=== PATIENT | female | born 1985 ===

== ENCOUNTER 2016-10-22 03:26 | Emergency (ER) | payer SELFPAY ==
[2016-10-22 03:42] VITALS: BP 118/67; PULSE 87; RESP 16; TEMP 99; O2SAT 100
[2016-10-22] MEDS ORDERED: Sodium Chloride 0.9% 1,000 ML IV STA (04:21)
--- NOTE | 2016-10-22 04:23 | ED PDOC ---
HPI: Headache Time Seen by Provider: 10/22/16 03:50 Chief Complaint (Nursing): Headache Chief Complaint (Provider): headache History Per: Patient History/Exam Limitations: no limitations Onset/Duration Of Symptoms: Days (3), Waxing/Waning Current Symptoms Are (Timing): Still Present Quality: "Pain" Associated Symptoms: Photophobia, Nausea, Vomiting Additional History Per: Patient Additional Complaint(s): 31 y/o female presents for eval of intermittent generalized headache x 3 days. Associated photophobia, vomiting x 2 last night. Headache improved with motrin. Patient states she has had headaches like this in past, has never followed up with a primary doctor. Denies fever, neck pain/stiffness, extremity numbness/weakness, dizziness, chest pain, shortness of breath, palpitations, abdominal pain. Past Medical History Reviewed: Historical Data, Nursing Documentation, Vital Signs Vital Signs: Last Vital Signs Temp 99 F 10/22/16 03:40 Pulse 87 10/22/16 03:40 Resp 16 10/22/16 03:40 BP 118/67 10/22/16 03:40 Pulse Ox 100 10/22/16 03:40 - Medical History PMH: Gall Bladder Disease - Surgical History Surgical History: (x 1) - Family History Family History: States: Unknown Family Hx - Home Medications Home Medications: Ambulatory Orders Medication Instructions Recorded Tramadol Hydrochloride [Tramadol] 50 mg PO TID PRN #10 tab 02/16/14 Ibuprofen 600 mg PO QID PRN #30 tab 02/18/14 Oxycodone HCl/Acetaminophen 1 tab PO Q6 PRN #18 tab 06/01/14 [Percocet 325 mg-5 mg] Fluconazole [Diflucan] 150 mg PO ONCE #1 tab 06/14/15 Metronidazole [Metrogel] 60 gm VAG HS #1 packet 06/14/15 Tamsulosin HCl [Flomax] 0.4 mg PO DAILY #10 cap.er.24h 10/19/15 Tramadol HCl [Ultram] 50 mg PO Q6 #15 tab 10/19/15 Doxycycline Monohydrate 100 mg PO BID 14 Days 04/15/16 Naproxen [Naprosyn] 500 mg PO Q12 PRN #20 tablet 10/22/16 Ondansetron [Zofran] 4 mg PO Q8H PRN #10 tab 10/22/16 - Allergies Allergies/Adverse Reactions: Allergies Allergy/AdvReac Type Severity Reaction Status Date / Time No Known Allergies Allergy Verified 10/22/16 03:40 Review of Systems ROS Statement: Except As Marked, All Systems Reviewed And Found Negative Gastrointestinal: Positive for: Vomiting Neurological: Positive for: Headache Physical Exam - Reviewed Nursing Documentation Reviewed: Yes Vital Signs Reviewed: Yes - Physical Exam Appears: Positive for: Well, Non-toxic, No Acute Distress Head Exam: Positive for: ATRAUMATIC, NORMAL INSPECTION, NORMOCEPHALIC Skin: Positive for: Normal Color Eye Exam: Positive for: Normal appearance, EOMI, PERRL ENT: Positive for: Normal ENT Inspection Cardiovascular/Chest: Positive for: Regular Rate, Rhythm Respiratory: Positive for: Normal Breath Sounds Gastrointestinal/Abdominal: Positive for: Normal Exam Back: Positive for: Normal Inspection Extremity: Positive for: Normal ROM Neurologic/Psych: Positive for: Alert, Oriented. Negative for: Motor/Sensory Deficits - ECG O2 Sat by Pulse Oximetry: 100 - Progress ED Course And Treament: labs, IV fluids, IV reglan, PO tylenol 5:55 Patient states headache improving. Pending labs Disposition - Clinical Impression Clinical Impression: Headache - Patient ED Disposition Is Patient to be Admitted: No - Disposition Referrals: [facility] [Outside] Disposition: Transfer of Care Disposition Time: 06:00 Condition: IMPROVED Prescriptions: Naproxen [Naprosyn] 500 mg PO Q12 PRN #20 tablet PRN Reason: Pain, Moderate (4-7) Ondansetron [Zofran] 4 mg PO Q8H PRN #10 tab PRN Reason: Nausea/Vomiting Instructions: Acute Headache (ED) Print Language: LUXEMBOURGISH Patient Signed Over To: Juancho Lyle Handoff Comments: pending labs, re-eval
[2016-10-22 05:53] LABS: BASO % 0.3 % (0.0-2.0); HEMATOCRIT 38.5 % (34.0-47.0); LYMPH # 0.9 K/uL (1.0-4.3); LYMPH % 16.8 % (20.0-40.0); MEAN CELL VOLUME 84.6 fl (81.0-99.0); MEAN CORPUSCULAR HEMOGLOBIN 27.6 pg (27.0-31.0); MEAN CORPUSCULAR HGB CONC 32.6 g/dL (33.0-37.0); MEAN PLATELET VOLUME 8.3 fl (7.2-11.7); MONO # 0.4 K/uL (0.0-0.8); MONO % 8.4 % (0.0-10.0); NEUT # 3.9 K/uL (1.8-7.0); NEUT % 74.5 % (50.0-75.0); RED CELL DISTRIBUTION WIDTH 12.8 % (11.5-14.5); WHITE BLOOD COUNT 5.2 K/uL (4.8-10.8)
--- NOTE | 2016-10-22 06:03 | ED PDOC ---
- Laboratory Results Result Diagrams: 10/22/16 04:21 10/22/16 04:21 - ECG O2 Sat by Pulse Oximetry: 100 Medical Decision Making Medical Decision Making: Pt s/o from [facility] at 0600 pending labs and re-eval. Pt. feeling better, will d/c home. Return precautions given. Scribe Attestation: Documented by Nayeli Valadez acting as a scribe for Juancho Lyle MD. Provider Scribe Attestation: All medical record entries made by the Scribe were at my direction and personally dictated by me. I have reviewed the chart and agree that the record accurately reflects my personal performance of the history, physical exam, medical decision making, and the department course for this patient. I have also personally directed, reviewed, and agree with the discharge instructions and disposition. Disposition - Clinical Impression Clinical Impression: Headache - POA Present On Arrival: None - Disposition Referrals: [facility] [Outside] Disposition: Routine/Home Disposition Time: 06:35 Condition: IMPROVED Prescriptions: Naproxen [Naprosyn] 500 mg PO Q12 PRN #20 tablet PRN Reason: Pain, Moderate (4-7) Ondansetron [Zofran] 4 mg PO Q8H PRN #10 tab PRN Reason: Nausea/Vomiting Instructions: Acute Headache (ED) Print Language: ARMENIAN
[2016-10-22 06:18] LABS: ALB/GLOB RATIO 1.2 (1.0-2.1); ALKALINE PHOSPHATASE 84 U/L (38-126); ALT/SGPT 42 U/L (9-52); AST/SGOT 39 U/L (14-36); BILIRUBIN,TOTAL 0.1 mg/dl (0.2-1.3); BLOOD UREA NITROGEN 8 mg/dl (7-17); CALCIUM 9.5 mg/dL (8.4-10.2); CARBON DIOXIDE 24 mmol/L (22-30); CHLORIDE 103 mmol/L (98-107); GFR AFRICAN-AMERICAN > 60; GLUCOSE,RANDOM 104 mg/dL (65-105); POTASSIUM 3.9 MMOL/L (3.6-5.0); SODIUM 139 mmol/l (132-148); TOTAL PROTEIN 8.2 G/DL (6.3-8.2)
== END 2016-10-22 06:34 | disposition home or self-care (01) ==
LOC: H.ER 03:26
DX: R51 Headache (principal); R11.10 Vomiting, unspecified
CPT/HCPCS: 80053; 81025; 85025; 99283; J2765; J7040

== ENCOUNTER 2018-01-19 12:10 | Emergency (ER) | payer SELFPAY ==
--- NOTE | 2018-01-19 13:13 | ED PDOC ---
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 Patient rates pain as 5 out of 10 and reports she is approximately 8 weeks . She states the three prior came full term. Patient denies having care or taking any vitamins, experiencing fever, chills, nausea, vomiting, diarrhea, vaginal bleeding, vaginal discharge or taking any medications prior to arrival. Otherwise: (-) melena, (-) hematochezia. LNMP: November 25, 2017 PMD: none provided Past Medical History Reviewed: Historical Data, Nursing Documentation, Vital Signs Vital Signs: Last Vital Signs Temp 98.0 F 01/19/18 16:24 Pulse 78 01/19/18 16:24 Resp 16 01/19/18 16:24 BP 95/45 L 01/19/18 16:24 Pulse Ox 99 01/19/18 16:24 - Medical History PMH: Gall Bladder Disease - Surgical History Surgical History: (x 2) - Family History Family History: States: Unknown Family Hx - Social History Current smoker - smoking cessation education provided: No Alcohol: None Drugs: Denies - Home Medications Home Medications: Ambulatory Orders Medication Instructions Recorded Tramadol Hydrochloride [Tramadol] 50 mg PO TID PRN #10 tab 02/16/14 Ibuprofen 600 mg PO QID PRN #30 tab 02/18/14 Oxycodone HCl/Acetaminophen 1 tab PO Q6 PRN #18 tab 06/01/14 [Percocet 325 mg-5 mg] Fluconazole [Diflucan] 150 mg PO ONCE #1 tab 06/14/15 Metronidazole [Metrogel] 60 gm VAG HS #1 packet 06/14/15 Tamsulosin HCl [Flomax] 0.4 mg PO DAILY #10 cap.er.24h 10/19/15 Tramadol HCl [Ultram] 50 mg PO Q6 #15 tab 10/19/15 Doxycycline Monohydrate 100 mg PO BID 14 Days tablet 04/15/16 Naproxen [Naprosyn] 500 mg PO Q12 PRN #20 tablet 10/22/16 Ondansetron [Zofran] 4 mg PO Q8H PRN #10 tab 10/22/16 Acetaminophen [Acetaminophen 8 650 mg PO Q8 PRN #21 tablet.er 01/19/18 Hour] 21/Iron Fu/Folic Acid 1 each PO DAILY #30 tablet 01/19/18 [ Complete Caplet] - Allergies Allergies/Adverse Reactions: Allergies Allergy/AdvReac Type Severity Reaction Status Date / Time No Known Allergies Allergy Verified 10/22/16 03:40 Review of Systems ROS Statement: Except As Marked, All Systems Reviewed And Found Negative Constitutional: Negative for: Fever, Chills Gastrointestinal: Positive for: Abdominal Pain (Diffuse). Negative for: Nausea , Vomiting, Diarrhea Genitourinary Female: Negative for: Vaginal Discharge, Vaginal Bleeding Physical Exam - Reviewed Nursing Documentation Reviewed: Yes Vital Signs Reviewed: Yes - Physical Exam Comments: GENERAL APPEARANCE: Patient is awake, alert, oriented x 3, resting comfortably. SKIN: Warm, dry; (-) cyanosis. EYES: (-) conjunctival pallor, (-) scleral icterus. ENMT: Mucous membranes moist. Airway patent, (-) stridor. NECK: Supple, FROM CHEST AND RESPIRATORY: (-) rales, (-) rhonchi, (-) wheezes; breath sounds equal bilaterally. Respirations nonlabored. HEART AND CARDIOVASCULAR: (-) irregularity ABDOMEN AND GI: Soft (-) distention. Bowel sounds active x4; [+] mild diffuse tenderness. (-) guarding, (-) rebound, (-) palpable masses, (-) CVA tenderness. EXTREMITIES: (-) deformity, (-) edema NEURO AND PSYCH: Mental status as above; (-) focal findings. Gait: steady. Speech: clear. (-) facial asymmetry (-) aphasia - Laboratory Results Result Diagrams: 01/19/18 14:13 01/19/18 14:13 Urine POC: Positive Urine dip results: Positive for: Blood (large), Protein (30). Negative for: Leukocyte Esterase, Nitrate, Ketones, Glucose, Bilirubin - ECG O2 Sat by Pulse Oximetry: 97 (RA) Pulse Ox Interpretation: Normal Medical Decision Making Medical Decision Making: Time: 1310 Initial Impression: abdominal pain and preganancy Initial Plan: --CMP --Beta- HCG --Urine --Urine dipstick --CBC --Tylenol 325 mg PO --Urine Culture --Urinalysis --US OB Transvaginal 1310 Udip reviewed (+) blood. U/A and U/C ordered. Upreg: (+) 1440 Patient in U/S. CBC unremarkable. H&H stable. U/A reviewed (-) leukocyte (-) nitrate (+) hematuria 1530 CMP unremarkable. Beta Quant: 18608.00 Pending U/S read. 1600 Date of service: 01/19/2018 PROCEDURE: OB Pelvic Ultrasound HISTORY: abd pain, preg LMP: 11/25/2017 COMPARISON: No relevant prior imaging FINDINGS: UTERUS: Gestational sac: Single intrauterine gestation. Measures 2.8 cm compatible with estimated gestational age of 7 weeks, 5 days. Yolk sac: Measures 0.4 cm. pole: [place]-rump length measures 1.0 cm compatible with estimated gestational age of 7 weeks, 1 day. Heart rate: 146 bpm. age (Ultrasound estimated): 7 weeks, 3 days Mar[place]-gestational hemorrhage: None. Date of delivery (Ultrasound estimated) : 09/04/2018 Uterus measures 8.8 x 6.8 x 5.6 cm. Retroverted. Normal in size and appearance. CERVIX: Measures 4.6 cm. Long and closed. No cervical abnormality seen. RIGHT OVARY: Not visualized. LEFT OVARY: Measures 3.4 x 2.3 x 1.8 cm. No solid mass. Normal flow. FREE FLUID: None. OTHER FINDINGS: None. IMPRESSION: Single live intrauterine gestation with average ultrasound age of 7 weeks, 3 days. heart rate 146 beats per minute. Cervix long and closed. 1615 On re-evaluation, patient reports resolution of symptoms. On exam, patient remains AAOx3, in no acute distress. Lungs clear to auscultation, cardiac RRR, abdomen soft, non-tender, repeat neuro exam shows no focal findings. Vitals stable. Lab/Diagnostic results d/w the patient in great detail using meteorology faculty member #[id number]. Diagnosis of abdominal pain in first trimester of , hematuria d/w the patient. Patient states she has an upcoming OB appt on 01/29/18 and was advised to follow up hematuria during her visit. Based on history, exam and diagnostic results, plan will be for outpatient follow up with OBGYN. Patient instructed to follow-up with pmd / referral provided / the clinic in 1- 2 days without fail. Advised to take medication as prescribed. Return to the emergency room at any time for any new or worsening symptoms. Patient states she fully agrees with and understands discharge instructions. States that she agrees with the plan and disposition. Verbalized and repeated discharge instructions and plan. I have given the patient opportunity to ask any additional questions. Scribe Attestation: Documented by Tayla Carcamo, acting as a scribe for MERCEDES Gardiner. Provider Scribe Attestation: All medical record entries made by the Scribe were at my direction and personally dictated by me. I have reviewed the chart and agree that the record accurately reflects my personal performance of the history, physical exam, medical decision making, and the department course for this patient. I have also personally directed, reviewed, and agree with the discharge instructions and disposition. Disposition - Clinical Impression Clinical Impression: Abdominal pain during , Hematuria - Patient ED Disposition Is Patient to be Admitted: No Counseled Patient/Family Regarding: Studies Performed, Diagnosis, Need For Followup, Rx Given - Disposition [facility] Disposition: Routine/Home Disposition Time: 16:19 Condition: STABLE Additional Instructions: La atencin mdica de emergencia que recibi hoy estaba dirigida a pat sntomas agudos. Si le prescribieron algn medicamento, llnelo y tome segn las indicaciones. Pat sntomas pueden tardar varios varghese en resolverse. Regrese al Departamento de Emergencia si pat sntomas empeoran, no mejoran o si tiene alg n otro problema. Comunquese con mckinney mdico en 2 varghese para allegra reevaluacin y seguimiento / o llame a javi de los mdicos / clnicas a los que whitney referido y que figura en el formulario de Informacin de visitas del paciente que se incluye en [place] paquete de juve. Traiga todos los documentos que recibi al momento del juve junto con los medicamentos que est tomando en mckinney visita de seguimiento. Nuestro tratamiento no puede reemplazar la atencin mdica en curso por parte de un proveedor de atencin primaria (PCP) fuera del departamento de emergencias. Prescriptions: Acetaminophen [Acetaminophen 8 Hour] 650 mg PO Q8 PRN #21 tablet.er PRN Reason: Pain, Moderate (4-7) 21/Iron Fu/Folic Acid [ Complete Caplet] 1 each PO DAILY #30 tablet Instructions: Acute Abdomen (Belly Pain), Blood in the Urine (Hematuria), Adult (DC), Care, - The Second Month Forms: [place] ([place]) Print Language: WELSH - POA Present On Arrival: None Results - Lab Results Lab Results: 01/19/18 01/19/18 01/19/18 14:13 14:13 14:13 WBC 7.9 RBC 4.25 Hgb 12.0 Hct 36.2 MCV 85.3 MCH 28.3 MCHC 33.2 RDW 13.7 Plt Count 253 MPV 8.3 Neut % (Auto) 64.7 Lymph % (Auto) 26.3 [place] % (Auto) 8.0 Eos % (Auto) 0.3 Baso % (Auto) 0.7 Neut # (Auto) 5.1 Lymph # (Auto) 2.1 [place] # (Auto) 0.6 Eos # (Auto) 0.0 Baso # (Auto) 0.1 Sodium 137 Potassium 3.8 Chloride 106 Carbon Dioxide 21 L Anion Gap 14 BUN 7 Creatinine 0.4 L Est GFR ( Amer) > 60 Est GFR (Non-Af Amer) > 60 Random Glucose 116 H Calcium 9.1 Total Bilirubin 0.4 AST 28 ALT 22 Alkaline Phosphatase 56 Total Protein 7.7 Albumin 4.1 Globulin 3.6 Albumin/Globulin Ratio 1.2 Beta HCG, Quant 16951.00 Urine Color Yellow Urine Clarity Cloudy Urine pH 6.0 Ur Specific [place] 1.020 Urine Protein 30 Urine Glucose (UA) Neg Urine Ketones Negative Urine Blood Moderate Urine Nitrate Negative Urine Bilirubin Negative Urine Urobilinogen 0.2-1.0 Ur Leukocyte Esterase Neg Urine RBC (Auto) 58 H Urine Microscopic WBC 3 Ur Squamous Epith Cells 7 H
[2018-01-19 14:27] LABS: BASO # 0.1 K/uL (0.0-0.2); BASO % 0.7 % (0.0-2.0); EOS % 0.3 % (0.0-4.0); LYMPH # 2.1 K/uL (1.0-4.3); LYMPH % 26.3 % (20.0-40.0); MEAN CELL VOLUME 85.3 fl (81.0-99.0); MEAN CORPUSCULAR HEMOGLOBIN 28.3 pg (27.0-31.0); MEAN CORPUSCULAR HGB CONC 33.2 g/dL (33.0-37.0); MEAN PLATELET VOLUME 8.3 fl (7.2-11.7); MONO # 0.6 K/uL (0.0-0.8); NEUT # 5.1 K/uL (1.8-7.0); NEUT % 64.7 % (50.0-75.0); NRBC % 0.1 % (0.0-0.0); RBC 4.25 Mil/uL (3.80-5.20); RED CELL DISTRIBUTION WIDTH 13.7 % (11.5-14.5); WHITE BLOOD COUNT 7.9 K/uL (4.8-10.8)
[2018-01-19 14:36] LABS: ALB/GLOB RATIO 1.2 (1.0-2.1); ALBUMIN 4.1 g/dL (3.5-5.0); CALCIUM 9.1 mg/dL (8.4-10.2); GFR NON-AFRICAN AMERICAN > 60
[2018-01-19 14:43] LABS: SQUAMOUS EPITHIAL 7 /hpf (0-5); URINE BILIRUBIN NEGATIVE (NEGATIVE); URINE BLOOD MODERATE (NEGATIVE); URINE CLARITY CLOUDY (Clear); URINE COLOR YELLOW (YELLOW); URINE GLUCOSE (UA) NEG (Normal); URINE LEUKOCYTE ESTERASE NEG Leu/uL (Negative); URINE PROTEIN 30 mg/dL (NEGATIVE); URINE UROBILINOGEN 0.2-1.0 mg/dL (0.2-1.0)
[2018-01-19 14:48] LABS: ALT/SGPT 22 U/L (9-52); AST/SGOT 28 U/L (14-36); BLOOD UREA NITROGEN 7 mg/dl (7-17)
--- NOTE | 2018-01-19 15:44 | US ---
Date of service: 01/19/2018 PROCEDURE: OB Pelvic Ultrasound HISTORY: abd pain, preg LMP: 11/25/2017 COMPARISON: No relevant prior imaging FINDINGS: UTERUS: Gestational sac: Single intrauterine gestation. Measures 2.8 cm compatible with estimated gestational age of 7 weeks, 5 days. Yolk sac: Measures 0.4 cm. pole: [place]-rump length measures 1.0 cm compatible with estimated gestational age of 7 weeks, 1 day. Heart rate: 146 bpm. age (Ultrasound estimated): 7 weeks, 3 days Maric[place]-gestational hemorrhage: None. Date of delivery (Ultrasound estimated) : 09/04/2018 Uterus measures 8.8 x 6.8 x 5.6 cm. Retroverted. Normal in size and appearance. CERVIX: Measures 4.6 cm. Long and closed. No cervical abnormality seen. RIGHT OVARY: Not visualized. LEFT OVARY: Measures 3.4 x 2.3 x 1.8 cm. No solid mass. Normal flow. FREE FLUID: None. OTHER FINDINGS: None. IMPRESSION: Single live intrauterine gestation with average ultrasound age of 7 weeks, 3 days. heart rate 146 beats per minute. Cervix long and closed.
[2018-01-19 16:24] VITALS: BP 95/45; PULSE 78; RESP 16; TEMP 98
[2018-01-22 16:37] VITALS: O2SAT 97
== END 2018-01-19 16:37 | disposition home or self-care (01) ==
LOC: H.ER 12:10
DX: O26.891 Other specified pregnancy related conditions, first trimester (principal); R31.9 Hematuria, unspecified

== ENCOUNTER 2018-03-19 00:10 | Emergency (ER) | payer SELFPAY ==
[2018-03-19 00:35] VITALS: BP 109/66; PULSE 75; RESP 17; TEMP 98.2; O2SAT 97
[2018-03-19] MEDS ORDERED: Sodium Chloride 0.9% 1,000 ML IV STA (00:49)
--- NOTE | 2018-03-19 00:58 | ED PDOC ---
HPI: Headache Time Seen by Provider: 03/19/18 00:42 Chief Complaint (Nursing): Headache History Per: Patient History/Exam Limitations: no limitations Onset/Duration Of Symptoms: Days (1) Current Symptoms Are (Timing): Still Present Severity: Moderate Pain Scale Rating Of: 4 Quality: Dull Preceeding Symptoms: Known Migraine Symptoms Associated Symptoms: denies: Photophobia, Blurred Vision, Nausea, Vomiting, Extremity Weakness Additional History Per: Patient Additional Complaint(s): She is 3 months. - Risk Factors SAH Risk Factors: Neg: Sudden Onset Of Pain, Worst Headache Of Life Past Medical History Reviewed: Historical Data, Nursing Documentation, Vital Signs Vital Signs: Last Vital Signs Temp 98.2 F 03/19/18 00:32 Pulse 75 03/19/18 00:32 Resp 17 03/19/18 00:32 BP 109/66 03/19/18 00:32 Pulse Ox 97 03/19/18 00:32 - Medical History PMH: Gall Bladder Disease, Migraine - Surgical History Surgical History: (x 2) - Family History Family History: States: Unknown Family Hx - Home Medications Home Medications: Ambulatory Orders Medication Instructions Recorded Tramadol Hydrochloride [Tramadol] 50 mg PO TID PRN #10 tab 02/16/14 Ibuprofen 600 mg PO QID PRN #30 tab 02/18/14 Oxycodone HCl/Acetaminophen 1 tab PO Q6 PRN #18 tab 06/01/14 [Percocet 325 mg-5 mg] Fluconazole [Diflucan] 150 mg PO ONCE #1 tab 06/14/15 Metronidazole [Metrogel] 60 gm VAG HS #1 packet 06/14/15 Tamsulosin HCl [Flomax] 0.4 mg PO DAILY #10 cap.er.24h 10/19/15 Tramadol HCl [Ultram] 50 mg PO Q6 #15 tab 10/19/15 Doxycycline Monohydrate 100 mg PO BID 14 Days tablet 04/15/16 Naproxen [Naprosyn] 500 mg PO Q12 PRN #20 tablet 10/22/16 Ondansetron [Zofran] 4 mg PO Q8H PRN #10 tab 10/22/16 Acetaminophen [Acetaminophen 8 650 mg PO Q8 PRN #21 tablet.er 01/19/ Hour] 21/Iron Fu/Folic Acid 1 each PO DAILY #30 tablet 01/19/18 [ Complete Caplet] - Allergies Allergies/Adverse Reactions: Allergies Allergy/AdvReac Type Severity Reaction Status Date / Time No Known Allergies Allergy Verified 03/19/18 00:35 Review of Systems ROS Statement: Except As Marked, All Systems Reviewed And Found Negative Physical Exam - Reviewed Nursing Documentation Reviewed: Yes Vital Signs Reviewed: Yes - Physical Exam Appears: Positive for: No Acute Distress Head Exam: Positive for: ATRAUMATIC, NORMAL INSPECTION Skin: Positive for: Warm, Dry Eye Exam: Positive for: EOMI, PERRL Neck: Positive for: Painless ROM, Supple Cardiovascular/Chest: Positive for: Regular Rate, Rhythm. Negative for: Tachycardia Respiratory: Negative for: Respiratory Distress Gastrointestinal/Abdominal: Positive for: Soft. Negative for: Tenderness Extremity: Positive for: Normal ROM Neurologic/Psych: Positive for: Alert, Oriented - ECG O2 Sat by Pulse Oximetry: 97 - Progress Re-evaluation Time: 02:42 Condition: Re-examined, Improved Medical Decision Making Medical Decision Making: Impression Headache Differential includes Recurrent migraines, tensions headaches, cluster headaches, PLan Reglan IV Toradol IV NS IV reassess Disposition - Clinical Impression Clinical Impression: Headache - Patient ED Disposition Is Patient to be Admitted: No Doctor Will See Patient In The: Office Counseled Patient/Family Regarding: Studies Performed, Diagnosis, Need For Followup - Disposition Referrals: [facility] [Outside] Disposition: Routine/Home Disposition Time: 02:42 Condition: GOOD Additional Instructions: NAHUN BAEZA, thank you for letting us take care of you today. Your provider was Klarissa Escobedo MD and you were treated for HEADACHE. The emergency medical care you received today was directed at your acute symptoms. If you were prescribed any medication, please fill it and take as directed. It may take several days for your symptoms to resolve. Return to the Emergency Department if your symptoms worsen, do not improve, or if you have any other problems. Please contact your doctor or call one of the physicians/clinics you have been referred to that are listed on the Patient Visit Information form that is included in your discharge packet. Bring any paperwork you were given at discharge with you along with any medications you are taking to your follow up visit. Our treatment cannot replace ongoing medical care by a primary care provider outside of the emergency department. Thank you for allowing the [facility] team to be part of your care today. If you had an X-Ray or CT scan: A Radiologist will review the ED reading if any change in treatment is needed we will contact you. If you had a blood, urine, or wound culture: It will take several days for the results, if any change in treatment is needed we will contact you. If you had an STI test: It will take 48 hours for the results. Please call after 1 week if you have not heard back. Instructions: Headache, Adult
== END 2018-03-19 03:20 | disposition home or self-care (01) ==
LOC: H.ER 00:10
DX: R51 Headache (principal)
CPT/HCPCS: 81025; 96361; 96374; 99285; J2765; J7030

== ENCOUNTER 2018-06-23 07:12 | Emergency (ER) | payer SELFPAY ==
[2018-06-23 07:21] VITALS: RESP 18; TEMP 98.2; O2SAT 98
[2018-06-23] MEDS ORDERED: Albuterol 0.083% Inhal Sol (2.5 mg/3 mL) UD INH ONE (08:31)
--- NOTE | 2018-06-23 08:33 | ED PDOC ---
History of Present Illness History of Present Illness: 33 year old female with a past medical history of gall bladder disease who is presenting to the ED for evaluation of throat pain and cough associated with post-tussive vomiting onset 3 days ago. Patient states that she notes white phlegm in the vomitus and states that she is unsure if she got the flu shot this season. She denies any fevers and offers no other medical complaints at this time. 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 denies: fever Past Medical History Reviewed: Historical Data, Nursing Documentation, Vital Signs Vital Signs: Last Vital Signs Temp 98.2 F 06/23/18 07:20 Pulse 86 06/23/18 07:20 Resp 18 06/23/18 07:20 BP 109/66 06/23/18 07:20 Pulse Ox 98 06/23/18 07:20 - Medical History PMH: Gall Bladder Disease, Migraine - Surgical History Surgical History: (x 2) - Family History Family History: States: Unknown Family Hx - Social History Current smoker - smoking cessation education provided: No Alcohol: None Drugs: Denies - Home Medications Home Medications: Ambulatory Orders Medication Instructions Recorded Tramadol Hydrochloride [Tramadol] 50 mg PO TID PRN #10 tab 02/16/14 RX: Ibuprofen 600 mg PO QID PRN #30 tab 02/18/14 Oxycodone HCl/Acetaminophen 1 tab PO Q6 PRN #18 tab 06/01/14 [Percocet 325 mg-5 mg] Fluconazole [Diflucan] 150 mg PO ONCE #1 tab 06/14/15 Metronidazole [Metrogel] 60 gm VAG HS #1 packet 06/14/15 Tamsulosin HCl [Flomax] 0.4 mg PO DAILY #10 cap.er.24h 10/19/15 Tramadol HCl [Ultram] 50 mg PO Q6 #15 tab 10/19/15 RX: Doxycycline Monohydrate 100 mg PO BID 14 Days tablet 04/15/16 Ondansetron [Zofran] 4 mg PO Q8H PRN #10 tab 10/22/16 RX: Naproxen [Naprosyn] 500 mg PO Q12 PRN #20 tablet 10/22/16 Acetaminophen [Acetaminophen 8 650 mg PO Q8 PRN #21 tablet.er 01/19/18 Hour] 21/Iron Fu/Folic Acid 1 each PO DAILY #30 tablet 01/19/18 [ Complete Caplet] - Allergies Allergies/Adverse Reactions: Allergies Allergy/AdvReac Type Severity Reaction Status Date / Time No Known Allergies Allergy Verified 06/23/18 07:32 Review of Systems ROS Statement: Except As Marked, All Systems Reviewed And Found Negative Constitutional: Negative for: Fever ENT: Positive for: Throat Pain Respiratory: Positive for: Cough Gastrointestinal: Positive for: Vomiting Physical Exam - Reviewed Nursing Documentation Reviewed: Yes Vital Signs Reviewed: Yes - Physical Exam Appears: Positive for: Non-toxic, No Acute Distress Head Exam: Positive for: ATRAUMATIC, NORMAL INSPECTION, NORMOCEPHALIC Skin: Positive for: Normal Color, Warm, DRY Eye Exam: Positive for: Normal appearance ENT: Positive for: Normal ENT Inspection, Pharynx Is (clear ). Negative for: Pharyngeal Erythema Cardiovascular/Chest: Positive for: Regular Rate, Rhythm. Negative for: Murmur Respiratory: Positive for: Normal Breath Sounds. Negative for: Respiratory Distress Gastrointestinal/Abdominal: Positive for: Normal Exam, Soft. Negative for: Tenderness Extremity: Positive for: Normal ROM. Negative for: Deformity, Swelling Neurologic/Psych: Positive for: Alert, Oriented. Negative for: Motor/Sensory Deficits Medical Decision Making Medical Decision Making: Time: 8:30 Plan: cough , uri rule out flu, pneumonia --Albuterol 2.5 mg INH --Peak Flow Pre/Post Tx --Influenza A B --Rapid Strep 11:20 Urine was positive. 11:35 Patient still wants x-ray and consents after hearing the risks associated. Patient shielded from chest x-ray. She denies any abdominal pain or vaginal bleeding at this time. Chest x-ray: FINDINGS: LUNGS: No active pulmonary disease. PLEURA: No significant pleural effusion identified. No pneumothorax apparent. CARDIOVASCULAR: No aortic atherosclerotic calcification present. Borderline cardiomegaly. No pulmonary vascular congestion. OSSEOUS STRUCTURES: No significant abnormalities. VISUALIZED UPPER ABDOMEN: Normal. OTHER FINDINGS: None. IMPRESSION: No consolidative infiltrate. No acute pulmonary pathology appreciated. Borderline cardiomegaly. Pulmonary vascular markings appear top normal. flu negative pt feels improved explained need for supportive care, tylenol, fluids, humidifier and need for outpt follow up. Scribe Attestation: Documented by Mary Louise, acting as a scribe for Andi Rivers MD. Provider Scribe Attestation: All medical record entries made by the Scribe were at my direction and personally dictated by me. I have reviewed the chart and agree that the record accurately reflects my personal performance of the history, physical exam, medical decision making, and the department course for this patient. I have also personally directed, reviewed, and agree with the discharge instructions and disposition. - ECG O2 Sat by Pulse Oximetry: 98 (RA) Pulse Ox Interpretation: Normal Disposition - Clinical Impression Clinical Impression: Common cold, - Patient ED Disposition Is Patient to be Admitted: No Counseled Patient/Family Regarding: Studies Performed, Diagnosis, Need For Followup - Disposition Disposition: Routine/Home Disposition Time: 11:25 Condition: IMPROVED Additional Instructions: drink plenty of fluids, use a humidifier follow up with your doctor in 1-2 days return to ED with any worsening or concerning symptoms Instructions: Cough, Runny Nose, and the Common Cold Forms: [employer] (Irish), [employer] (Maltese) Print Language: OCCITAN
[2018-06-23] MEDS ORDERED: Albuterol 0.083% Inhal Sol (2.5 mg/3 mL) UD ONE (08:39)
--- NOTE | 2018-06-23 11:20 | RAD ---
Date of service: 06/23/2018 HISTORY: cough COMPARISON: No prior. TECHNIQUE: Chest PA and lateral FINDINGS: LUNGS: No active pulmonary disease. PLEURA: No significant pleural effusion identified. No pneumothorax apparent. CARDIOVASCULAR: No aortic atherosclerotic calcification present. Borderline cardiomegaly. No pulmonary vascular congestion. OSSEOUS STRUCTURES: No significant abnormalities. VISUALIZED UPPER ABDOMEN: Normal. OTHER FINDINGS: None. IMPRESSION: No consolidative infiltrate. No acute pulmonary pathology appreciated. Borderline cardiomegaly. Pulmonary vascular markings appear top normal.
[2018-06-23 11:54] VITALS: BP 115/67; PULSE 75
== END 2018-06-23 11:55 | disposition home or self-care (01) ==
LOC: H.ER 07:12
DX: J00 Acute nasopharyngitis [common cold] (principal); Z33.1 Pregnant state, incidental

== ENCOUNTER 2018-08-15 19:08 | Emergency (ER) | payer SELFPAY ==
[2018-08-15 19:22] VITALS: O2SAT 100
--- NOTE | 2018-08-15 19:32 | ED PDOC ---
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 Patient reports she has been drinking honey and lemon at home without relief of symptoms. 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 Denies recent travel or sick contacts. Also denies: fever, N/V/D, abdominal pain, chest pain, prolonged immobility, foot swelling, calf pain, sinus/facial pain, rash, urinary symptoms, vaginal bleeding or discharge. PMD: unknown LMP: 11/25/17 Past Medical History Reviewed: Historical Data, Nursing Documentation, Vital Signs Vital Signs: Last Vital Signs Temp 98 F 08/15/18 19:19 Pulse 79 08/15/18 19:19 Resp 16 08/15/18 19:19 BP 148/72 08/15/18 19:19 Pulse Ox 100 08/15/18 19:19 - Medical History PMH: Gall Bladder Disease, Migraine - Surgical History Surgical History: (x 2) - Family History Family History: States: Unknown Family Hx - Living Arrangements Living Arrangements: With Family - Social History Current smoker - smoking cessation education provided: No Alcohol: None Drugs: Denies - Home Medications Home Medications: Ambulatory Orders Medication Instructions Recorded Tramadol Hydrochloride [Tramadol] 50 mg PO TID PRN #10 tab 02/16/14 Ibuprofen 600 mg PO QID PRN #30 tab 02/18/14 Oxycodone HCl/Acetaminophen 1 tab PO Q6 PRN #18 tab 06/01/14 [Percocet 325 mg-5 mg] Fluconazole [Diflucan] 150 mg PO ONCE #1 tab 06/14/15 Metronidazole [Metrogel] 60 gm VAG HS #1 packet 06/14/15 Tamsulosin HCl [Flomax] 0.4 mg PO DAILY #10 cap.er.24h 10/19/15 Tramadol HCl [Ultram] 50 mg PO Q6 #15 tab 10/19/15 Doxycycline Monohydrate 100 mg PO BID 14 Days tablet 04/15/16 Naproxen [Naprosyn] 500 mg PO Q12 PRN #20 tablet 10/22/16 Ondansetron [Zofran] 4 mg PO Q8H PRN #10 tab 10/22/16 Acetaminophen [Acetaminophen 8 650 mg PO Q8 PRN #21 tablet.er 01/19/18 Hour] 21/Iron Fu/Folic Acid 1 each PO DAILY #30 tablet 01/19/18 [ Complete Caplet] Acetaminophen [Acetaminophen 8 650 mg PO Q8 PRN #21 tablet.er 08/15/18 Hour] - Allergies Allergies/Adverse Reactions: Allergies Allergy/AdvReac Type Severity Reaction Status Date / Time No Known Allergies Allergy Verified 08/15/18 19:14 Review of Systems ROS Statement: Except As Marked, All Systems Reviewed And Found Negative ENT: Positive for: Nose Congestion, Throat Pain Respiratory: Positive for: Cough Physical Exam - Reviewed Nursing Documentation Reviewed: Yes Vital Signs Reviewed: Yes - Physical Exam Comments: GENERALIZED APPEARANCE: Patient is awake, alert, oriented x3; resting comfortably in no acute distress. SKIN: Warm, dry; (-) cyanosis; (-) rash. ENMT: TMs: (-) erythema (-) bulging. Pharynx: uvula midline (+) faint pharyngeal erythema (-)exudate. Mucous membranes moist. Airway widely patent: (-) stridor, (-) hoarseness, (-) drooling (-) tongue elevation (-) jaw or neck swelling. (-) sinus tenderness. Nares: patent, (-) rhinorrhea. NECK: Supple, FROM (-) tenderness, (-) stiffness, (-) lymphadenopathy. CHEST AND RESPIRATORY: (-) rales, (-) rhonchi, (-) wheezes; breath sounds equal bilaterally. Respirations even and nonlabored. HEART AND CARDIOVASCULAR: (-) irregularity ABDOMEN AND GI: Soft; (+) gravid (-) tenderness EXTREMITIES: (-) deformity NEURO AND PSYCH: Mental status as above. Cranial nerves grossly intact; strength symmetric. Gait: steady. Speech: clear. (-) facial symmetry Medical Decision Making Medical Decision Makin Initial Impression: pharyngitis, viral URI in Plan: -Tylenol PO -Rapid Strep -Re-evaluation 2014 Rapid Strep: negative. On re-evaluation, patient reports improvement of symptoms. On exam, patient remains AAOx3, in no acute distress. Lungs clear to auscultation, cardiac RRR, abdomen soft, non-tender. Vitals stable. Lab/Diagnostic results d/w the patient in great detail. Diagnosis of viral URI/pharyngitis in d/w the patient. Based on history, exam and diagnostic results, plan will be for outpatient follow up with PMD. Patient instructed to follow-up with pmd / referral provided / the clinic in 1- 2 days without fail. Advised to take medication as prescribed. Return to the emergency room at any time for any new or worsening symptoms. Patient states she fully agrees with and understands discharge instructions. States that she agrees with the plan and disposition. Verbalized and repeated discharge instructions and plan. I have given the patient opportunity to ask any additional questions. - ECG O2 Sat by Pulse Oximetry: 100 (RA) Pulse Ox Interpretation: Normal Disposition - Clinical Impression Clinical Impression: Cough, Viral URI, Viral pharyngitis - Patient ED Disposition Is Patient to be Admitted: No Counseled Patient/Family Regarding: Studies Performed, Diagnosis, Need For Followup, Rx Given - Disposition Referrals: primary, doctor [Other] Disposition: Routine/Home Disposition Time: 20:15 Condition: STABLE Additional Instructions: La atencin mdica de emergencia que recibi hoy se dirigi a afia sntomas agudos. Si le recetaron algn medicamento, llnelo y tmelo segn las indicaciones. Los sntomas pueden tardar varios varghese en resolverse. Regrese al Departamento de Emergencias si afia sntomas empeoran, no mejoran o si tiene otros problemas. Comunquese con mckinney mdico dentro de 2 varghese para allegra nueva evaluacin y soham un seguimiento o llame a javi de los mdicos / clnicas a los que whitney sido referido y que figuran en el formulario de Informacin de visita al paciente que se incluye en [place]ckinney paquete de juve. Lleve todos los documentos que le entregaron al momento del juve junto con todos los medicamentos que est tomando para mckinney visita de seguimiento. Nuestro tratamiento no puede reemplazar la atencin mdica continua por parte de un proveedor de atencin primaria (PCP) fuera del departamento de emergencias. Prescriptions: Acetaminophen [Acetaminophen 8 Hour] 650 mg PO Q8 PRN #21 tablet.er PRN Reason: pain/fever Instructions: Viral Pharyngitis, Cough in Adults, Viral Upper Respiratory Infection, Adult (DC), Cough, Runny Nose, and the Common Cold Forms: [employer] (Irish) Print Language: DJIBOUTIAN - POA Present On Arrival: None Results - Lab Results Lab Results: 08/15/18 19:42 Grp A Beta Strep Ag Negative
[2018-08-15 20:47] VITALS: BP 135/79; PULSE 70; RESP 18; TEMP 98.4
== END 2018-08-15 20:40 | disposition home or self-care (01) ==
LOC: H.ER 19:08
DX: J02.9 Acute pharyngitis, unspecified (principal); R05 Cough; J06.9 Acute upper respiratory infection, unspecified